=== PATIENT | female | born 1940 | race Caucasian/White ===

== ENCOUNTER 2022-02-11 15:06 | Outpatient (CLI) | payer MEDICARE | END 2022-02-11 15:07 | disposition home or self-care (01) | LOC: CSHMRI 15:06 | PROVIDERS: ATTEND Nurse Practitioner Family | DX: M54.14 Radiculopathy, thoracic region (principal) | CPT/HCPCS: 72146 ==

== ENCOUNTER 2025-08-31 15:59 | Inpatient (IN) | payer OTHER ==
[2025-08-31 17:34] LABS: #Basophils 0.04 10x3/uL (0.0-0.2); #Eosinophils 0.11 10x3/uL (0.0-0.5); #Monocytes 0.61 10x3/uL (0.0-1.1); #Neutrophils 4.67 10x3/uL (1.5-8.4); %Basophils 0.5 % (0.0-2.0); %Eosinophils 1.5 % (0.0-6.0); %Lymphocytes 27.4 % (18.0-47.0); %Monocytes 8.1 % (0.0-10.0); %Neutrophils 62.2 % (40.0-75.0); Hematocrit 37.4 % (34.9-44.5); Hemoglobin 12.2 g/dL (12.0-15.5); Mean Corpuscular Hemoglobin 30.3 pg (27.0-33.0); Mean Corpuscular Volume 92.8 fL (81.6-98.3); Platelet Count 248 10x3/uL (150-450); Red Blood Cell (RBC) Count 4.03 10x6/uL (3.90-5.03); White Blood Cell (WBC) Count 7.51 10x3/uL (3.5-10.5)
[2025-08-31 18:02] LABS: ALT (SGPT) Less than 4 U/L (Less than 34); AST (SGOT) 13 U/L (11-34); Albumin 3.5 g/dL (3.1-4.5); Alkaline Phosphatase 75 U/L (40-110); Anion Gap 13 mmol/L (10-20); BUN (Urea Nitrogen) 25 mg/dL (9.8-20.1); Bilirubin, Total 0.5 mg/dL (0.3-1.2); Calc. Creatinine Clearance 0 mL/min (70-130); Calcium 10.1 mg/dL (7.8-10.44); Carbon Dioxide 26 mmol/L (23-31); Chloride 101 mmol/L (98-107); Globulin 2.5 g/dL (2.4-3.5); Glucose 88 mg/dL (83-110); Potassium 4.1 mmol/L (3.5-5.1); Sodium 136 mmol/L (136-145)
[2025-08-31] MEDS ORDERED: Cefepime 2 GM VIAL ONE (18:08)
[2025-08-31] MEDS: VANCOMYCIN 1.25 GM/250 ML BAG 1.25 GM in Premix 1 BAG IVPB SCH (19:45)
[2025-08-31] MEDS ORDERED: Ondansetron PF 4 MG/2 ML Vial IVP PRN (19:56)
[2025-08-31] MEDS ORDERED: Vancomycin 1 GM in Sodium Chloride 0.9% 250 ML 250 ML IVPB SCH (21:00)
[2025-08-31] MEDS: Melatonin 3 MG TAB PO SCH (22:10)
[2025-09-01 02:42] LABS: Glucose, Urine (Dipstick) Normal (Negative); Leukocyte Negative (Negative); Protein, Urine (Dipstick) Negative (Neg-Trace); Specific Gravity, Urine 1.015 (1.005-1.030)
[2025-09-01 03:04] LABS: Bacteria/HPF None Seen HPF (None Seen); CAUTI Indications for Culture Dysuria,urgency,freq; RBC/HPF None Seen HPF (0-3); WBC/HPF 0-3 HPF (0-3)
[2025-09-01 03:05] LABS: Urine Culture Reflex No No
[2025-09-01 07:16] LABS: #Basophils 0.03 10x3/uL (0.0-0.2); #Eosinophils 0.17 10x3/uL (0.0-0.5); #Monocytes 0.44 10x3/uL (0.0-1.1); #Neutrophils 2.61 10x3/uL (1.5-8.4); %Basophils 0.6 % (0.0-2.0); %Eosinophils 3.4 % (0.0-6.0); %Lymphocytes 34.7 % (18.0-47.0); %Monocytes 8.8 % (0.0-10.0); %Neutrophils 52.3 % (40.0-75.0); Hematocrit 40.9 % (34.9-44.5); Hemoglobin 13.6 g/dL (12.0-15.5); Mean Corpuscular Hemoglobin 30.4 pg (27.0-33.0); Mean Corpuscular Volume 91.5 fL (81.6-98.3); Platelet Count 237 10x3/uL (150-450); Red Blood Cell (RBC) Count 4.47 10x6/uL (3.90-5.03); White Blood Cell (WBC) Count 4.99 10x3/uL (3.5-10.5)
[2025-09-01 07:34] LABS: Vancomycin, Random 11.0 ug/mL (See Comment)
[2025-09-01 07:39] LABS: ALT (SGPT) Less than 4 U/L (Less than 34); AST (SGOT) 13 U/L (11-34); Albumin 3.3 g/dL (3.1-4.5); Alkaline Phosphatase 68 U/L (40-110); Anion Gap 12 mmol/L (10-20); BUN (Urea Nitrogen) 20 mg/dL (9.8-20.1); Bilirubin, Total 0.5 mg/dL (0.3-1.2); Calc. Creatinine Clearance 0 mL/min (70-130); Calcium 9.6 mg/dL (7.8-10.44); Carbon Dioxide 25 mmol/L (23-31); Chloride 104 mmol/L (98-107); Globulin 3.0 g/dL (2.4-3.5); Glucose 100 mg/dL (83-110); Potassium 4.6 mmol/L (3.5-5.1); Sodium 136 mmol/L (136-145)
[2025-09-01] MEDS ORDERED: Enoxaparin 40 MG (0.4 mL) SYRINGE ONE (08:04)
[2025-09-01] MEDS ORDERED: Famotidine 20 MG TAB ONE (08:06)
[2025-09-01] MEDS: Enoxaparin 40 MG (0.4 mL) SYRINGE SC SCH (08:39)
[2025-09-01] MEDS: Sertraline 25 MG TAB PO SCH (08:39)
[2025-09-01] MEDS: Famotidine 20 MG TAB PO SCH (08:39)
[2025-09-01 10:11] VITALS: BMI 20.3
[2025-09-01] MEDS: VANCOMYCIN 1.25 GM/250 ML BAG 1.25 GM in Premix 1 BAG IVPB SCH (12:30)
[2025-09-01] MEDS: Famotidine/PF 20 mg/2ml Vial SLOW IVP SCH (12:31)
[2025-09-01] MEDS ORDERED: hydrALAZINE 20 MG/ML VIAL SLOW IVP PRN (16:59)
[2025-09-01] MEDS: hydrALAZINE 20 MG/ML VIAL SLOW IVP PRN (18:07)
[2025-09-01] MEDS: Melatonin 3 MG TAB PO SCH (21:08)
[2025-09-02 04:49] LABS: #Basophils 0.04 10x3/uL (0.0-0.2); #Eosinophils 0.12 10x3/uL (0.0-0.5); #Monocytes 0.44 10x3/uL (0.0-1.1); #Neutrophils 3.08 10x3/uL (1.5-8.4); %Basophils 0.7 % (0.0-2.0); %Eosinophils 2.2 % (0.0-6.0); %Lymphocytes 31.7 % (18.0-47.0); %Monocytes 8.1 % (0.0-10.0); %Neutrophils 57.1 % (40.0-75.0); Hematocrit 41.7 % (34.9-44.5); Hemoglobin 13.9 g/dL (12.0-15.5); Mean Corpuscular Hemoglobin 30.5 pg (27.0-33.0); Mean Corpuscular Volume 91.6 fL (81.6-98.3); Platelet Count 257 10x3/uL (150-450); Red Blood Cell (RBC) Count 4.55 10x6/uL (3.90-5.03); White Blood Cell (WBC) Count 5.40 10x3/uL (3.5-10.5)
[2025-09-02 05:03] LABS: Anion Gap 11 mmol/L (10-20); BUN (Urea Nitrogen) 16 mg/dL (9.8-20.1); Calc. Creatinine Clearance 56 mL/min (70-130); Calcium 9.6 mg/dL (7.8-10.44); Carbon Dioxide 26 mmol/L (23-31); Chloride 103 mmol/L (98-107); Glucose 91 mg/dL (83-110); Potassium 3.9 mmol/L (3.5-5.1); Sodium 136 mmol/L (136-145)
[2025-09-02 05:05] LABS: Vancomycin, Random 13.2 ug/mL (See Comment)
[2025-09-02] MEDS: Acetaminophen 325 MG TAB PO PRN (09:56)
[2025-09-02] MEDS: Cholecalciferol 1,000 UNITS (25 MCG) TAB PO SCH (09:59)
[2025-09-03 04:53] LABS: #Basophils 0.03 10x3/uL (0.0-0.2); #Eosinophils 0.18 10x3/uL (0.0-0.5); #Monocytes 0.36 10x3/uL (0.0-1.1); #Neutrophils 2.18 10x3/uL (1.5-8.4); %Basophils 0.7 % (0.0-2.0); %Eosinophils 3.9 % (0.0-6.0); %Lymphocytes 39.6 % (18.0-47.0); %Monocytes 7.9 % (0.0-10.0); %Neutrophils 47.7 % (40.0-75.0); Hematocrit 40.6 % (34.9-44.5); Hemoglobin 13.3 g/dL (12.0-15.5); Mean Corpuscular Hemoglobin 30.4 pg (27.0-33.0); Mean Corpuscular Volume 92.9 fL (81.6-98.3); Platelet Count 243 10x3/uL (150-450); Red Blood Cell (RBC) Count 4.37 10x6/uL (3.90-5.03); White Blood Cell (WBC) Count 4.57 10x3/uL (3.5-10.5)
[2025-09-03 05:01] LABS: Vancomycin, Random 13.7 ug/mL (See Comment)
[2025-09-03 05:04] LABS: Anion Gap 10 mmol/L (10-20); BUN (Urea Nitrogen) 19 mg/dL (9.8-20.1); Calc. Creatinine Clearance 61 mL/min (70-130); Calcium 9.0 mg/dL (7.8-10.44); Carbon Dioxide 25 mmol/L (23-31); Chloride 102 mmol/L (98-107); Glucose 97 mg/dL (83-110); Potassium 4.5 mmol/L (3.5-5.1); Sodium 132 mmol/L (136-145)
[2025-09-03] MEDS: Vancomycin HCl 750 MG in Sodium Chloride 0.9% 250 ML 250 ML IVPB SCH (06:00)
[2025-09-03] MEDS: Famotidine 20 MG TAB PO SCH (09:16)
[2025-09-03] MEDS: Senokot S 8.6-50 MG TAB PO SCH (09:16)
[2025-09-03] MEDS: Famotidine/PF 20 mg/2ml Vial SLOW IVP SCH (09:19)
[2025-09-03 13:53] LABS: Alpha-Fetoprotein,Tumor Marker Less than 2.0 ng/mL (0.89-8.78); Cancer Antigen - CA 125 15.5 U/mL (Less than 35)
[2025-09-04 14:53] VITALS: BMI 20.3
[2025-09-05 04:38] LABS: #Basophils 0.05 10x3/uL (0.0-0.2); #Eosinophils 0.18 10x3/uL (0.0-0.5); #Monocytes 0.50 10x3/uL (0.0-1.1); #Neutrophils 2.87 10x3/uL (1.5-8.4); %Basophils 0.9 % (0.0-2.0); %Eosinophils 3.3 % (0.0-6.0); %Lymphocytes 34.5 % (18.0-47.0); %Monocytes 9.1 % (0.0-10.0); %Neutrophils 52.0 % (40.0-75.0); Hematocrit 39.4 % (34.9-44.5); Hemoglobin 12.8 g/dL (12.0-15.5); Mean Corpuscular Hemoglobin 30.3 pg (27.0-33.0); Mean Corpuscular Volume 93.4 fL (81.6-98.3); Platelet Count 238 10x3/uL (150-450); Red Blood Cell (RBC) Count 4.22 10x6/uL (3.90-5.03); White Blood Cell (WBC) Count 5.51 10x3/uL (3.5-10.5)
[2025-09-05 04:51] LABS: Anion Gap 12 mmol/L (10-20); BUN (Urea Nitrogen) 27 mg/dL (9.8-20.1); Calc. Creatinine Clearance 57 mL/min (70-130); Calcium 9.1 mg/dL (7.8-10.44); Carbon Dioxide 23 mmol/L (23-31); Chloride 108 mmol/L (98-107); Glucose 96 mg/dL (83-110); Potassium 4.9 mmol/L (3.5-5.1); Sodium 138 mmol/L (136-145); Vancomycin, Random 13.6 ug/mL (See Comment)
[2025-09-05] MEDS ORDERED: Ketorolac Tromethamine 30 MG (1 mL) VIAL ONE (09:15)
[2025-09-05] MEDS ORDERED: PROPOFOL 20 ML ONE (09:15)
[2025-09-05] MEDS ORDERED: PHENYLEPHRINE-NS 100 MCG/ML 10 ML SYRINGE ONE (09:16)
[2025-09-05] MEDS ORDERED: SUCCINYLCHOLINE/SOD CL,ISO/PF 200 MG/10 ML SYRINGE FS ONE (09:16)
[2025-09-05] MEDS ORDERED: Bupivacaine 0.25% HCL 30 ML VIAL ONE (09:26)
[2025-09-05] MEDS: HYDROcodone/Acetaminophen 5/325 mg Tablet PO PRN (18:22)
[2025-09-06 04:10] LABS: #Basophils 0.04 10x3/uL (0.0-0.2); #Eosinophils Less than 0.03 10x3/uL (0.0-0.5); #Monocytes 0.81 10x3/uL (0.0-1.1); #Neutrophils 5.51 10x3/uL (1.5-8.4); %Basophils 0.5 % (0.0-2.0); %Eosinophils 0.3 % (0.0-6.0); %Lymphocytes 20.1 % (18.0-47.0); %Monocytes 10.1 % (0.0-10.0); %Neutrophils 68.9 % (40.0-75.0); Hematocrit 38.0 % (34.9-44.5); Hemoglobin 12.1 g/dL (12.0-15.5); Mean Corpuscular Hemoglobin 30.1 pg (27.0-33.0); Mean Corpuscular Volume 94.5 fL (81.6-98.3); Platelet Count 211 10x3/uL (150-450); Red Blood Cell (RBC) Count 4.02 10x6/uL (3.90-5.03); White Blood Cell (WBC) Count 8.00 10x3/uL (3.5-10.5)
[2025-09-06 04:24] LABS: Anion Gap 9 mmol/L (10-20); BUN (Urea Nitrogen) 36 mg/dL (9.8-20.1); Calc. Creatinine Clearance 55 mL/min (70-130); Calcium 8.7 mg/dL (7.8-10.44); Carbon Dioxide 23 mmol/L (23-31); Chloride 107 mmol/L (98-107); Glucose 128 mg/dL (83-110); Potassium 5.0 mmol/L (3.5-5.1); Sodium 134 mmol/L (136-145)
[2025-09-07 10:06] LABS: Calcium 8.8 mg/dL (7.8-10.44)
[2025-09-07 11:26] LABS: Anion Gap 11 mmol/L (10-20); BUN (Urea Nitrogen) 23 mg/dL (9.8-20.1); Calc. Creatinine Clearance 63 mL/min (70-130); Carbon Dioxide 24 mmol/L (23-31); Chloride 107 mmol/L (98-107); Glucose 122 mg/dL (83-110); Potassium 4.9 mmol/L (3.5-5.1); Sodium 137 mmol/L (136-145)
[2025-09-08 05:38] LABS: #Basophils 0.06 10x3/uL (0.0-0.2); #Eosinophils 0.25 10x3/uL (0.0-0.5); #Monocytes 0.58 10x3/uL (0.0-1.1); #Neutrophils 3.56 10x3/uL (1.5-8.4); %Basophils 0.9 % (0.0-2.0); %Eosinophils 3.9 % (0.0-6.0); %Lymphocytes 29.4 % (18.0-47.0); %Monocytes 9.2 % (0.0-10.0); %Neutrophils 56.3 % (40.0-75.0); Hematocrit 38.6 % (34.9-44.5); Hemoglobin 12.5 g/dL (12.0-15.5); Mean Corpuscular Hemoglobin 30.4 pg (27.0-33.0); Mean Corpuscular Volume 93.9 fL (81.6-98.3); Platelet Count 213 10x3/uL (150-450); Red Blood Cell (RBC) Count 4.11 10x6/uL (3.90-5.03); White Blood Cell (WBC) Count 6.33 10x3/uL (3.5-10.5)
[2025-09-08 05:50] LABS: Anion Gap 11 mmol/L (10-20); BUN (Urea Nitrogen) 31 mg/dL (9.8-20.1); Calc. Creatinine Clearance 61 mL/min (70-130); Calcium 9.3 mg/dL (7.8-10.44); Carbon Dioxide 23 mmol/L (23-31); Chloride 106 mmol/L (98-107); Glucose 101 mg/dL (83-110); Potassium 4.7 mmol/L (3.5-5.1); Sodium 135 mmol/L (136-145)
[2025-09-08 05:51] LABS: Vancomycin, Random 20.8 ug/mL (See Comment)
[2025-09-09 04:45] LABS: #Basophils 0.04 10x3/uL (0.0-0.2); #Eosinophils 0.28 10x3/uL (0.0-0.5); #Monocytes 0.59 10x3/uL (0.0-1.1); #Neutrophils 3.08 10x3/uL (1.5-8.4); %Basophils 0.7 % (0.0-2.0); %Eosinophils 4.9 % (0.0-6.0); %Lymphocytes 29.5 % (18.0-47.0); %Monocytes 10.4 % (0.0-10.0); %Neutrophils 54.1 % (40.0-75.0); Hematocrit 35.0 % (34.9-44.5); Hemoglobin 11.4 g/dL (12.0-15.5); Mean Corpuscular Hemoglobin 30.5 pg (27.0-33.0); Mean Corpuscular Volume 93.6 fL (81.6-98.3); Platelet Count 198 10x3/uL (150-450); Red Blood Cell (RBC) Count 3.74 10x6/uL (3.90-5.03); White Blood Cell (WBC) Count 5.69 10x3/uL (3.5-10.5)
[2025-09-09 05:01] LABS: Anion Gap 8 mmol/L (10-20); BUN (Urea Nitrogen) 26 mg/dL (9.8-20.1); Calc. Creatinine Clearance 62 mL/min (70-130); Calcium 8.9 mg/dL (7.8-10.44); Carbon Dioxide 24 mmol/L (23-31); Chloride 107 mmol/L (98-107); Glucose 102 mg/dL (83-110); Potassium 4.1 mmol/L (3.5-5.1); Sodium 135 mmol/L (136-145)
[2025-09-09] MEDS: Nystatin Powder 15 GM BOT TOP SCH ×2 (17:03→21:29)
[2025-09-10 16:26] VITALS: BP 130/56; TEMP 98.1
== END 2025-09-10 18:16 | DRG 475 ==
LOC: CSHERS 15:59 → CSHERHOLD 18:37 → CSHTELE 09-01 10:07
PROVIDERS: ADMIT Internal Medicine; ATTEND Internal Medicine
PROC: 3E03329 Introduction of Other Anti-infective into Peripheral Vein, Percutaneous Approach (ICD-10-PCS; 2025-09-02)
PROC: 0T9B70Z Drainage of Bladder with Drainage Device, Via Natural or Artificial Opening (ICD-10-PCS; 2025-09-02)
PROC: 0Y6N0ZB Detachment at Left Foot, Partial 2nd Ray, Open Approach (ICD-10-PCS; principal; 2025-09-05)
PROC: 05HY33Z Insertion of Infusion Device into Upper Vein, Percutaneous Approach (ICD-10-PCS; 2025-09-09)
PROC: 3E04329 Introduction of Other Anti-infective into Central Vein, Percutaneous Approach (ICD-10-PCS; 2025-09-09)
DX: M86.172 Other acute osteomyelitis, left ankle and foot (principal); F33.9 Major depressive disorder, recurrent, unspecified; M00.072 Staphylococcal arthritis, left ankle and foot; L03.116 Cellulitis of left lower limb; M84.478A Pathological fracture, left toe(s), initial encounter for fracture; E55.9 Vitamin D deficiency, unspecified; B95.62 Methicillin resistant Staphylococcus aureus infection as the cause of diseases classified elsewhere; M20.12 Hallux valgus (acquired), left foot; G20.A1 Parkinson's disease without dyskinesia, without mention of fluctuations; M85.89 Other specified disorders of bone density and structure, multiple sites; I10 Essential (primary) hypertension; R33.8 Other retention of urine; Z79.899 Other long term (current) drug therapy; K57.30 Diverticulosis of large intestine without perforation or abscess without bleeding; M21.612 Bunion of left foot; M81.0 Age-related osteoporosis without current pathological fracture; M20.32 Hallux varus (acquired), left foot; K59.00 Constipation, unspecified; N31.9 Neuromuscular dysfunction of bladder, unspecified; F41.9 Anxiety disorder, unspecified; L57.0 Actinic keratosis
CPT/HCPCS: 36415; 74176; 80048; 80053; 80202; 81001; 82105; 82378; 83605; 85025; 86140; 86301; 86304; 87040; 87070; 87077; 87102; 87116; 87186; 87205; 87206; 88305; 93005; 93010; 93923; 96374; 96375; 97139; C1713; J0360; J0665; J0692; J1100; J1650; J1885; J2704; J3373; J7030; J7050